=== PATIENT | male | born 1965 | race Caucasian/White ===

== ENCOUNTER 2019-10-19 11:39 | Emergency (ER) | payer MEDICARE, MEDICAID, SELFPAY ==
--- NOTE | ~2019-10-19 | XR_ITS ---
XR ankle RT min 3V DATE: 10/19/2019 12:03 INDICATION: Fall one day ago. 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 Approximately 1.6 x 5.5 mm apparent cortical fracture fragment is noted overlying the anterior aspect of the ankle anterior to the talar dome on the lateral view, of uncertain origin. There is soft tissue swelling of the ankle, primarily laterally. No other fracture or dislocation of the ankle is evident. The ankle mortise appears intact. IMPRESSION: Lateral soft tissue swelling; small cortical avulsion fracture fragment is suggested ante rior to the talar dome on the lateral view. No other fracture or dislocation is evident. Consider CT examination of the right ankle for further evaluation as clinically appropriate Osteoarthritic the tibiotalar joint Reviewed, dictated and finalized at location A. IMPRESSION: Lateral soft tissue swelling; small cortical avulsion fracture frag ment is suggested anterior to the talar dome on the lateral view. No other frac ture or dislocation is evident. Consider CT examination of the right ankle for further evaluation as clinically appropriate Osteoarthritic the tibiotalar joint
[2019-10-19 11:48] VITALS: BP 108/73; PULSE 85; RESP 16; TEMP 36.8; O2SAT 100
--- NOTE | 2019-10-19 11:50 | ED.LOWEXIN ---
HPI - Extremity Injury (Lower) General Chief Complaint: Extremity Injury, Lower Stated Complaint: right ankle injury Source: patient and RN notes reviewed Mode of arrival: ambulatory Limitations: no limitations History of Present Illness HPI Narrative: This is a 54 years old male presents to the office for an evaluation of right ankle injury yesterday. States, he lost balance and rolled his ankle. Pain is not bad, intermittently. Denies head injury/trauma. Denies dizziness prior to injury. He tried ice and Asprin for his symptoms. Related Data Home Medications Medication Instructions Recorded Confirmed fenofibrate mg 10/19/19 fluoxetine mg 10/19/19 Allergies Allergy/AdvReac Type Severity Reaction Status Date / Time No Known Allergies Allergy Unverified 11/06/18 18:01 Review of Systems Review of Systems: Narrative: CONSTITUTIONAL: Denies feeling ill CARDIOVASCULAR: Denies chest pain, palpitation prior to injury RESPIRATORY: Denies dyspnea GASTROINTESTINAL: Denies abdominal pain, nausea, vomiting SKIN: Reports bruising in the ankle MUSCULOSKELETAL: Reports right ankle pain with swelling NEUROLOGIC: Denies lightheaded/dizziness prior to injury PMFSH Past Medical History Medical History (Updated 10/19/19 @ 13:12 by JERARDO Kaye) Anxiety HLD (hyperlipidemia) HTN (hypertension) Hx of fracture of fibula left, 10/2018 Mentally challenged slightly borderline Comments At time of signature, I agree with nursing past medical, surgical, social and family history. There is no relevant family history pertinent to the presenting complaint. Exam Narrative: Exam Narrative: GENERAL: This is a well-nourished, well-developed patient, in no apparent distress. NEURO: awake, alert, and oriented to person, place and time. There were no obvious focal neurologic abnormalities. Steady gait EXTREMITIES: The right ankle is swollen and tender over the lateral aspect but the skin is intact and there is no ligamentous instability. There is no deformity. The foot and toes are warm and well-perfused. Sensation to pain and light touch is intact. [place] Coma Scale Eye Opening: Spontaneous 4 [place] Coma Scale Motor: Obeys Commands 6 [place] Coma Scale Verbal: Oriented 5 Course Consultations Consultation #1: I consult Dr. Lee who is orthopedics stone mason regarding patient case, he recommended OCL, crutches and follow-up in outpatient; no immediate CT is necessary. Date: 10/19/19 Time: 12:18 Vital Signs Vital signs: Vital Signs Temperature 98.3 F 10/19/19 11:48 Pulse Rate 85 10/19/19 11:48 Respiratory Rate 16 10/19/19 11:48 Blood Pressure 108/73 10/19/19 11:48 Pulse Oximetry 100 10/19/19 11:48 Temperature 98.3 F 10/19/19 11:48 Pulse Rate 85 10/19/19 11:48 Respiratory Rate 16 10/19/19 11:48 Blood Pressure 108/73 10/19/19 11:48 Pulse Oximetry 100 10/19/19 11:48 MDM - Extremity Injury (Lower) MDM Narrative Medical decision making narrative: Discharge instructions reviewed with patient and his caregiver, as well as provided in writing per nursing staff. The instructions also include specific and strict return/GO TO THE ER as well as f/u information. All questions have been answered, and the patient and caregiver deny any further questions with discharge and discharge plan. Differential Diagnosis Differential diagnosis: Likely ankle sprain and strain and fracture of hip Medical Records Attestation: I reviewed the patient's medical records. Medical records narrative: 10/28 Imaging Data Attestation: I personally reviewed and interpreted this imaging study as follows: My impression: see report Radiologist's impression: XR ankle RT min 3V DATE: 10/19/2019 12:03 INDICATION: Fall one day ago. 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 Approximately 1.6 x 5.5 mm apparent cortical fracture fragment
--- NOTE | 2019-10-19 12:49 | PC.NURSE ---
Pt. refuses wheelchair to treatment room. Pt. again denies wheelchair when using the restroom during visit.
== END 2019-10-19 13:20 | disposition home or self-care (01) ==
PROVIDERS: Emergency Provider Nurse Practitioner
DX: S92.141A Displaced dome fracture of right talus, initial encounter for closed fracture (principal); E78.5 Hyperlipidemia, unspecified; I10 Essential (primary) hypertension; W18.49XD Other slipping, tripping and stumbling without falling, subsequent encounter
CPT/HCPCS: 29515; 73610; 99214; G0463